=== PATIENT | male | born 1955 | race Caucasian/White ===

== ENCOUNTER 2016-08-08 17:54 | Emergency (ER) | payer OTHER ==
[~2016-08-08 17:54] MED LIST: ASPIRIN81 M4 PO; COLCHICINE0.6 M2 PO; FUROSEMIDE20 M1 PO; INDOMETHACIN50 M1 PO; KEFLEX500 M1 PO; METOPROLOL TAR100 M1 PO; NORCO 5-325 TA1 EACH PO; XARELTO20 M2 PO; ZOLPIDEM TARTRA10 M1 PO
[2016-08-08 18:16] LABS: ABSOLUTE BASOPHIL COUNT 0 /CUMM (0.0-0.2); ABSOLUTE EOSINOPHIL COUNT 0.1 /CUMM (0.0-0.7); ABSOLUTE GRANULOCYTE CT 6.6 /CUMM (1.4-6.5); ABSOLUTE LYMPH COUNT 1.1 /CUMM (1.2-3.4); ABSOLUTE MONOCYTE COUNT 0.6 /CUMM (0.10-0.60); BASOPHIL % 0.2 % (0.0-2.0); EOSINOPHIL % 1.4 % (0-5); GRANULOCYTE % 78.7 % (42.2-75.2); HEMATOCRIT 47.5 % (42-52); MEAN CORPUSCULAR HGB 29.6 PG (27.0-31.0); MEAN CORPUSCULAR HGB CONC 33.8 G/DL (33.0-37.0); MEAN CORPUSCULAR VOLUME 87.5 FL (80.0-94.0); MEAN PLATELET VOLUME 9.1 FL (7.4-10.4); PLATELET COUNT 136 /CUMM (130-400); RBC DISTRIBUTION WIDTH 14.7 % (11.5-14.5); RED BLOOD CELL CT 5.43 /CUMM (4.70-6.10); WHITE BLOOD CELL COUNT 8.4 /CUMM (4.8-10.8)
[2016-08-08] MEDS ORDERED: CARTIA XT120 M1 PO (19:19)
--- NOTE | 2016-08-08 19:19 | ED DYSPNEA/ASTHMA COMPLAINT ---
History of Present Illness General Chief Complaint: Dyspnea (COPD, CHF, Other) Stated Complaint: SOB Source: patient, old records Exam Limitations: no limitations Vital Signs & Intake/Output Vital Signs & Intake/Output Vital Signs Date Time Temp Pulse Resp B/P B/P Pulse O2 O2 Flow FiO2 Mean Ox Delivery Rate 08/08 2126 96 Room Air 08/08 2042 98.2 83 18 143/91 97 Room Air 08/08 1943 95 08/08 180 99.2 97 20 152/93 98 Room Air Allergies Coded Allergies: NO KNOWN ALLERGIES (05/07/13) Reconcile Medications Albuterol Sulfate (Proair Hfa) 90 MCG HFA.AER.AD 2 PUF INH Q4-6 PRN PRN WHEEZING Albuterol Sulfate (Proair Hfa) 90 MCG HFA.AER.AD 2 PUF INH Q4-6 PRN PRN WHEEZING Allopurinol 300 MG TABLET 1 TAB PO BID GOUT (Reported) Aspirin (Aspirin*) 81 MG TAB.CHEW 1 TAB PO DAILY HEART HEALTH (Reported) Azithromycin (Zithromax) 250 MG TABLET 1 DP PO AD BRONCHITIS 2 the first day followed by 1 for days 2-5 Azithromycin (Zithromax) 250 MG TABLET 1 DP PO AD BRONCHITIS 2 the first day followed by 1 for days 2-5 Clopidogrel Bisulfate (Clopidogrel) 75 MG TABLET 1 TAB PO DAILY BLOOD THINNER (Reported) Codeine Phosphate/Guaifenesi (Guaifen-Codeine 100-10 MG/5 Ml) 10 MG-100 MG/5 ML LIQUID 10 ML PO Q6HR PRN COUGH Codeine Phosphate/Guaifenesi (Guaifen-Codeine 100-10 MG/5 Ml) 10 MG-100 MG/5 ML LIQUID 10 ML PO Q6HR PRN COUGH Diltiazem HCl (Cartia Xt) 120 MG CAP.ER.24H 1 CAP PO DAILY HEART/BP (Reported ) Furosemide 20 MG TABLET 1 TAB PO DAILY WATER PILL (Reported) Lisinopril 40 MG TABLET 1 TAB PO BID BP (Reported) Metoprolol Tartrate 100 MG TABLET 1.5 TAB PO BID HEART/BP (Reported) Rivaroxaban (Xarelto) 20 MG TABLET 1 TAB PO DAILY BLOOD THINNER (Reported) with food Zolpidem Tartrate 10 MG TABLET 1 TAB PO QPM SLEEP (Reported) Triage Note: TRIAGE: C/O DIFF BREATHING TODAY, DENIES MITIGATING OR ALLEVIATING FACTORS. EKG COMPLETED IN TRIAGE, AFIB RATE CONTROLLED WITH HX OF SAME. HX CHF AND FOLLOWED BY DR VASQUEZ AND DR GAY CARDIOLOGY. DENIES CHEST PAIN AT PRESENT. 02 SAT 98% ON RA. MINIMAL PEDAL EDEMA OBSERVED. AAOX3. BLOODWORK SENT FROM TRIAGE (BLUE, SST, LAV). Triage Nurses Notes Reviewed? yes Onset: Gradual Duration: day(s): (3), constant Timing: recent history Severity: mild Activities at Onset: none Prior Episodes/Possible Cause: occasional episodes Associated Symptoms: cough, chest pain HPI: 61 yo male h/o afib on xarelto presents to the ER c/o productive coughof yellow sputum, intermitten dyspnea and chest pain secondary to coughing for hte past 3 days. he reports historyof similar sx in hte past and was d/w pna. he states last week his legs were swollen however that has since resolved, no orthopnea, no fever, chills, palp, diziness, lighthedness, abd pain, n/v/d. he does not smoke. no pain with inspiration (ILANA LATIF) Past History Travel History Traveled to [place] past 21 day No Medical History Any Pertinent Medical History? see below for history Neurological: NONE EENT: NONE Cardiovascular: AFIB, CHF Respiratory: NONE Gastrointestinal: NONE Hepatic: NONE Renal: NONE Musculoskeletal: gout Psychiatric: NONE Endocrine: NONE Surgical History Surgical History: non-contributory Psychosocial History Who do you live with Friend Services at Home None What is your primary language Romansh Tobacco Use: Current Not Daily Family History Family History, If Any: MOTHER FH: lung cancer FATHER FH: lung cancer Relation not specified for: Bone cancer Hx Contributory? No (ILANA LATIF) Review of Systems Review of Systems Constitutional: Reports: see HPI. All Other Systems: Reviewed and Negative Comments Review of systems: See HPI, All other systems negative. Constitutional, no chills no fever, no malaise HEENT: no sore throat no congestion, no ear pain Cardiovascular: No chest pain , no palpitation , no orthopnea Skin: no rashes, no change in skin Respiratory: No dyspnea cough no sputum no hemoptysis GI: No nausea no vomiting, no diarrhea, : No dysuria Muscle skeletal: No joint pain, no joint swelling, no back pain, no neck pain, Neurologic: no headache Psych: No stress Heme/endocrine: No bruising no bleeding Immunology: No lymphadenopathy (ILANA LATIF) Physical Exam Physical Exam General Appearance: well developed/nourished, no apparent distress, alert, awake Respiratory: normal breath sounds Comments: Well-developed well-nourished person in no acute distress HEENT: Normal EENT exam; PERRL, EOMI, no nystagmus. HEAD is atraumatic. moist mucous membranes. Neck: Supple, no lymphadenopathy, normal range of motion without pain or tenderness Back: Nontender, no CVA tenderness. Full range of motion Cardiovascular: Regular rate and rhythms no murmurs rubs or gallops, normal JVP Respiratory: Chest nontender.There were no bony deformities, no asymmetry. No respiratory distress. Patient speaking in full complete sentences. Breath sounds clear to auscultation bilaterally: NO W/R/R Abdomen: Soft, nontender nondistended, no appreciable organomegaly. Normal bowel sounds. No rebound/guarding, No appreciable enlargement of the abdominal aorta, No ascites. Extremity: No edema, full range of motion of extremities, normal and equal pulses bilaterally, 5 out of 5 strength noted to bilateral upper and lower extremities Neuro: Alert oriented x3, motor sensory normal, cranial nerves II through XII grossly intact. There were no obvious focal neurologic abnormalities. Skin: No appreciable rash on exposed skin, skin is warm and dry. Psych: Mood and affect is normal, memory and judgment is normal. Core Measures ACS in differential dx? Yes Severe Sepsis Present: No Septic Shock Present: No (ILANA LATIF) Progress Differential Diagnosis: asthma, AMI, bronchitis, CHF, COPD, musculoskeletal pain , pericarditis, pulmonary embolism, pneumonia, pneumothorax, unstable angina Plan of Care: Orders Procedure Date/time Status TROPONIN LEVEL 08/08 1801 Complete COMPREHENSIVE METABOLIC PANEL 08/08 1801 Complete CBC WITHOUT DIFFERENTIAL 08/08 1801 Complete EKG 08/08 175 Active Laboratory Tests 08/08/161804: Anion Gap 9, Estimated GFR > 60, BUN/Creatinine Ratio 17.3, Glucose 99, Calcium 9.6, Total Bilirubin 0.9, AST 42, ALT 57, Alkaline Phosphatase 127 H, Troponin I < 0.01, Total Protein 7.2, Albumin 4.4, Globulin 2.8, Albumin/Globulin Ratio 1.6, CBC w Diff NO MAN DIFF REQ, RBC 5.43, MCV 87.5, MCH 29.6, RDW 14.7 H, MPV 9.1, Gran % 78.7 H, Lymphocytes % 12.8 L, Monocytes % 6.9, Eosinophils % 1.4, Basophils % 0.2, Absolute Granulocytes 6.6 H, Absolute Lymphocytes 1.1 L, Absolute Monocytes 0.6, Absolute Eosinophils 0.1, Absolute Basophils 0, PUBS MCHC 33.8 08/08/16 1803: Nqa-W-Vfsvuijzold Pept Cancelled Labs ordered old records reviewed patient denies any symptoms at this time he reports similar history when diagnosed with pneumonia a few years ago x-ray ordered reading treatment ordered Patient reports improvement in symptoms after breathing treatment I discussed with the patient at length all of their results. I had an extensive conversation regarding need for close follow up with their primary care physician this week as well as return precautions. I answered all of their questions, they feel comfortable with the plan and follow-up care. I discussed with the patient/family the medications that they will receive. I gave them signs and symptoms that could indicate an adverse reaction. I have advised them to limit their activities until they can see how they respond to the medication. (STEFANI ALEXANDRA,ILANA) Diagnostic Imaging: Viewed by Me: Radiology Read. Discussed w/RAD: Radiology Read. Radiology Impression: PATIENT: CINDY GONSALES PRESENT AGE: 61 PATIENT ACCOUNT NO: [id number] : 55 LOCATION: [facility] ORDERING PHYSICIAN: ILANA ALEXANDRA SERVICE DATE: 08/08/16 EXAM TYPE: RAD - XRY-CHEST XRAY, PA AND LATERAL EXAMINATION: XR CHEST CLINICAL INFORMATION: Dyspnea. COMPARISON: Chest CT from 05/06/2013 TECHNIQUE: 2 views of the chest were obtained. FINDINGS: Mild cardiomegaly is stable. Abandoned epicardial leads are redemonstrated. The thoracic aorta appears unremarkable. The lungs appear clear and somewhat hyperinflated. No consolidation, pulmonary edema, pleural effusion, or pneumothorax. The bones appear somewhat demineralized with multilevel degenerative changes. Healed right lower rib fractures are suspected. No acute osseous abnormalities are visualized. IMPRESSION: Stable cardiomegaly. No radiographic evidence of active cardiopulmonary disease. DICTATED BY: SABRINA AGUILAR MD DATE/TIME DICTATED:08/08/162010 RESPIRATORY CLINICIAN:BRAIN DATE/ TIME TRANSCRIBED:08/08/162010 CONFIDENTIAL, DO NOT COPY WITHOUT APPROPRIATE AUTHORIZATION. <Electronically signed in Other Vendor System> SIGNED BY: SABRINA AGUILAR MD 08/08/162016 Initial ED EKG: normal intervals, normal p-waves, normal QRS complex, normal sinus rhythm, AFIB (100) Prior EKG: unchanged (05/2013) (ILANA LATIF) Departure Departure Time of Disposition: 2020 Disposition: HOME OR SELF CARE Condition: Stable Clinical Impression Primary Impression: Bronchitis Referrals: JACOB VASQUEZ MD (PCP/Family) Additional Instructions: ZPAK DIRECTED, ROBITUSSIN WITH CODEINE FOR COUGH THIS MAY MAKE YOU DROWSY. NO DRIVING OR DRINKING ALOCHOL WHILE TAKING. PROAIR INHALER DIRECTED. THESE WERE SENT TO [facility]. FOLLOW UP WITH YOUR PMD SCHEDULED. RETURN TO THE ER WITH ANY CONCERNS AT ANYTIME SOONER Departure Forms: Customer Survey General Discharge Information Prescriptions: Current Visit Scripts Codeine Phosphate/Guaifenesi (Guaifen-Codeine 100-10 MG/5 Ml) 10 ML PO Q6HR PRN COUGH #150 ML Azithromycin (Zithromax) 1 DP PO AD #6 TAB 2 the first day followed by 1 for days 2-5 Albuterol Sulfate (Proair Hfa) 2 PUF INH Q4-6 PRN PRN WHEEZING #1 INHAL Azithromycin (Zithromax) 1 DP PO AD #6 TAB 2 the first day followed by 1 for days 2-5 Codeine Phosphate/Guaifenesi (Guaifen-Codeine 100-10 MG/5 Ml) 10 ML PO Q6HR PRN COUGH #150 ML Albuterol Sulfate (Proair Hfa) 2 PUF INH Q4-6 PRN PRN WHEEZING #1 INHAL (ILANA LATIF) PA/[employer] Co-Sign Statement Statement: ED Attending supervision documentation- I saw and evaluated the patient. I have also reviewed all the pertinent lab results and diagnostic results. I agree with the findings and the plan of care as documented in the PA's/[employer]'s documentation. x I have reviewed the ED Record and agree with the PA's/[employer]'s documentation. [] Additions or exceptions (if any) to the PAs/[employer]AT[employer]'s note and plan are summarized below: [] (HIPONA MD,TYRON) Critical Care Note Critical Care Note Critical Care Time: non-applicable (STEFANI ALEXANDRA,ILANA)
[2016-08-08] MEDS ORDERED: LISINOPRIL40 M1 PO (19:20)
[2016-08-08] MEDS ORDERED: CLOPIDOGREL75 M1 PO (19:21)
[2016-08-08] MEDS ORDERED: ALLOPURINOL300 M1 PO (19:22)
--- NOTE | 2016-08-08 20:17 | RADIOLOGY REPORT ---
EXAMINATION: XR CHEST CLINICAL INFORMATION: Dyspnea. COMPARISON: Chest CT from 05/06/2013 TECHNIQUE: 2 views of the chest were obtained. FINDINGS: Mild cardiomegaly is stable. Abandoned epicardial leads are redemonstrated. The thoracic aorta appears unremarkable. The lungs appear clear and somewhat hyperinflated. No consolidation, pulmonary edema, pleural effusion, or pneumothorax. The bones appear somewhat demineralized with multilevel degenerative changes. Healed right lower rib fractures are suspected. No acute osseous abnormalities are visualized. IMPRESSION: Stable cardiomegaly. No radiographic evidence of active cardiopulmonary disease.
[2016-08-08] MEDS ORDERED: GUAIFEN-CODEIN118 M1 PO ×2 (20:25→21:07)
[2016-08-08] MEDS ORDERED: PROAIR HFA8.5 GM INH ×2 (20:25→21:07)
[2016-08-08] MEDS ORDERED: ZITHROMAX250 M2 PO ×2 (20:25→21:07)
[2016-08-08 20:43] VITALS: BP 143/91
== END 2016-08-08 21:29 ==
LOC: ERH 17:54
PROVIDERS: Emergency Medicine
DX: J40 Bronchitis, not specified as acute or chronic (principal); Z72.0 Tobacco use; R07.9 Chest pain, unspecified
CPT/HCPCS: 1263; 93005; 93010

== ENCOUNTER 2017-05-22 12:18 | Observation (INO) | payer OTHER ==
[~2017-05-22] VITALS: Ht 182.9 cm; Wt 108.0 kg
[~2017-05-22 12:18] MED LIST changes: +ALLOPURINOL300 M1 PO; +CARTIA XT120 M1 PO; +CLOPIDOGREL75 M1 PO; +GUAIFEN-CODEIN118 M1 PO; +LISINOPRIL40 M1 PO; +MEDROL4 M2 PO; +PROAIR HFA8.5 GM INH; +TYLENOL WITH C1 EACH PO; +ZITHROMAX250 M2 PO
[2017-05-22 13:00] LABS: ABSOLUTE BASOPHIL COUNT 0 /CUMM (0.0-0.2); ABSOLUTE EOSINOPHIL COUNT 0.1 /CUMM (0.0-0.7); ABSOLUTE GRANULOCYTE CT 3.4 /CUMM (1.4-6.5); ABSOLUTE LYMPH COUNT 1.8 /CUMM (1.2-3.4); ABSOLUTE MONOCYTE COUNT 0.4 /CUMM (0.10-0.60); BASOPHIL % 0.3 % (0.0-2.0); EOSINOPHIL % 1.2 % (0-5); GRANULOCYTE % 59.8 % (42.2-75.2); HEMATOCRIT 43.8 % (42-52); MEAN CORPUSCULAR HGB 29.4 PG (27.0-31.0); MEAN CORPUSCULAR HGB CONC 34.2 G/DL (33.0-37.0); MEAN CORPUSCULAR VOLUME 85.9 FL (80.0-94.0); MEAN PLATELET VOLUME 9.5 FL (7.4-10.4); PLATELET COUNT 190 /CUMM (130-400); RBC DISTRIBUTION WIDTH 14.9 % (11.5-14.5); WHITE BLOOD CELL COUNT 5.8 /CUMM (4.8-10.8)
[2017-05-22] MEDS ORDERED: FENOFIBRATE PO (13:13)
[2017-05-22] MEDS ORDERED: DIGOXIN125 MCG PO (13:14)
--- NOTE | 2017-05-22 13:14 | ED CARDIAC/CP/PALPITATIONS ---
History of Present Illness General Chief Complaint: Chest Pain Stated Complaint: SENT IN BY MD GAY FOR LAB WORK AND CP Source: patient Exam Limitations: no limitations Vital Signs & Intake/Output Vital Signs & Intake/Output Vital Signs Date Time Temp Pulse Resp B/P B/P Pulse O2 O2 Flow FiO2 Mean Ox Delivery Rate 05/22 1841 97.5 93 22 128/74 97 05/22 1752 96.3 83 18 143/72 98 Room Air 05/22 1530 91 146/79 05/22 1514 96.5 72 16 136/75 100 Room Air 05/22 1430 96.0 70 20 120/60 98 Room Air 05/22 1229 97.3 94 18 136/89 99 Room Air Allergies Coded Allergies: NO KNOWN ALLERGIES (05/07/13) Reconcile Medications Albuterol Sulfate (Proair Hfa) 90 MCG HFA.AER.AD 2 PUF INH Q4-6 PRN PRN WHEEZING Allopurinol 300 MG TABLET 1 TAB PO BID GOUT (Reported) Aspirin (Aspirin*) 81 MG TAB.CHEW 1 TAB PO DAILY HEART HEALTH (Reported) Clopidogrel Bisulfate (Clopidogrel) 75 MG TABLET 1 TAB PO DAILY BLOOD THINNER (Reported) Digoxin 125 MCG TABLET 1 TAB PO DAILY HEART (Reported) Diltiazem HCl (Cartia Xt) 120 MG CAP.ER.24H 1 CAP PO DAILY HEART/BP (Reported ) Fenofibrate 150 MG CAPSULE 1 CAP PO DAILY CHOLESTEROL (Reported) Furosemide 20 MG TABLET 1 TAB PO DAILY WATER PILL (Reported) Lisinopril 40 MG TABLET 1 TAB PO BID BP (Reported) Metoprolol Tartrate 100 MG TABLET 1.5 TAB PO BID HEART/BP (Reported) Rivaroxaban (Xarelto) 20 MG TABLET 1 TAB PO DAILY BLOOD THINNER (Reported) with food Zolpidem Tartrate 10 MG TABLET 1 TAB PO QPM SLEEP (Reported) Triage Note: PT SENT TO ER BY DR GAY FOR BLOOD WORK, PT STATES THAT HE HAS HISTORY OF AFIB AND HE IS ON XARELTO/ASA/PLAVIX, PT STATES THAT HE HAS NOT FELT WELL LATELY, COMPLAINS OF SOB, O2 SAT 99 % ON RA, DENIES CP AT THIS TIME. STATES THAT HE WENT TO APPOINTMENT AND TOLD DR GAY HIS SYMPTOMS HE WAS SENT DOWN STAIRS Triage Nurses Notes Reviewed? yes Onset: Gradual Duration: week(s): Timing: recent history Quality/Severity: sharp Location: substernal Radiation: no radiation Activities at Onset: none Prior Chest Pain/Card Workup: cardiac cath HPI: 61yo male with hx of CAD s/p cardiac stents, a fib on xarelto, plavix, ASA, CHF presents to ED sent in by Dr. Gay for evaluation of chest pain. Patient states that for the past 4 weeks he has had persistent chest pain described as constant. Over the past several days the chest pain has been worsening, more severe today, currently 6/10. 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 Patient has associated dyspnea. He denies cough, fevers, chills, hemoptysis, abdominal pain, nausea, vomiting, presyncope, syncope. (Josie Gaytan) Past History Travel History Traveled to [place] past 21 day No Medical History Any Pertinent Medical History? see below for history Neurological: NONE EENT: NONE Cardiovascular: AFIB, CHF Respiratory: NONE Gastrointestinal: NONE Hepatic: NONE Renal: NONE Musculoskeletal: gout Psychiatric: NONE Endocrine: NONE Blood Disorders: NONE Cancer(s): NONE CONTROLLER INSTRUCTOR/Reproductive: NONE Surgical History Surgical History: non-contributory Psychosocial History Who do you live with Friend Services at Home None What is your primary language Brazilian Tobacco Use: Never used ETOH Use: denies use Illicit Drug Use: denies illicit drug use Family History Family History, If Any: MOTHER FH: lung cancer FATHER FH: lung cancer Relation not specified for: Bone cancer Hx Contributory? No (Josie Gaytan) Review of Systems Review of Systems Constitutional: Reports: no symptoms. EENTM: Reports: no symptoms. Respiratory: Reports: see HPI. Cardiovascular: Reports: see HPI. GI: Reports: no symptoms. Genitourinary: Reports: no symptoms. Musculoskeletal: Reports: no symptoms. Skin: Reports: no symptoms. Neurological/Psychological: Reports: no symptoms. Hematologic/Endocrine: Reports: no symptoms. Immunologic/Allergic: Reports: no symptoms. All Other Systems: Reviewed and Negative (Josie Gaytan) Physical Exam Physical Exam General Appearance: well developed/nourished, no apparent distress, alert, awake Head: atraumatic, normal appearance Eyes: Bilateral: normal appearance. Ears, Nose, Throat: hearing grossly normal Neck: normal inspection, supple, full range of motion Respiratory: normal breath sounds, no respiratory distress, lungs clear Cardiovascular: normal peripheral pulses, irregularly irregular Peripheral Pulses: 2+ radial (R), 2+ radial (L) Gastrointestinal: normal bowel sounds, soft, non-tender, no organomegaly Back: normal inspection, normal range of motion Extremities: normal inspection, normal range of motion Neurologic/Psych: awake, alert, oriented x 3 Skin: intact, normal color, warm/dry Core Measures ACS in differential dx? Yes CVA/TIA Diagnosis No Sepsis Present: No Sepsis Focused Exam Completed? No (Vanessa ALEXANDRA,Josie Arrieta) Progress Differential Diagnosis: AMI, atrial fibrillation, CHF/pulm edema, costochondritis, musculoskeletal pain, myocarditis, pericarditis, pneumonia, pneumothorax, pulmonary embolism, rib fracture, unstable angina, digoxin toxicity Plan of Care: Orders Procedure Date/time Status Heart Healthy Diet 05/23 B Active TROPONIN LEVEL 05/22 2200 Active EKG 05/22 2200 Active Pathway - chart 05/22 1700 Active House Staff 05/22 1700 Active Patient Data 05/22 1700 Active Code Status 05/[address] in observation 05/22 1655 Active ED Holding Orders 05/22 1655 Active Vital Signs 05/22 1655 Active Code Status 05/22 1655 Complete Patient Data 05/22 1639 Active TROPONIN LEVEL 05/22 1632 Complete EKG 05/22 1632 Active Add-on Test (ER Only) 05/22 1426 Active Add-on Test (ER Only) 05/22 1314 Active Intake & Output 05/22 1310 Active MAGNESIUM 05/22 1238 Complete DIGOXIN 05/22 1238 Complete D-DIMER 05/22 1238 Complete B-TYPE NATRIURETIC PEP (BNP) 05/22 1238 Complete TROPONIN LEVEL 05/22 1232 Complete COMPREHENSIVE METABOLIC PANEL 05/22 1232 Complete CBC WITHOUT DIFFERENTIAL 05/22 1232 Complete EKG 05/22 1220 Active VTE Mechanical Prophylaxis 05/22 UNK Active MISTAKE 05/22 UNK Active Telemetry/Pole Setter 05/22 UNK Active ECHOCARDIOGRAM 05/22 UNK Active Current Medications Sig/Rocio Start time Last Medication Dose Stop Time Status Admin Atorvastatin Calcium 20 MG 1700 05/23 1700 AC (Lipitor) Digoxin 0.125 MG 1700 05/23 1700 AC (Lanoxin) Aspirin 81 MG DAILY 05/23 1000 AC (Aspirin) Clopidogrel Bisulfate 75 MG DAILY 05/23 1000 AC (Plavix) Diltiazem HCl 120 MG DAILY 05/23 1000 AC (Cardizem CD) Fenofibrate 145 MG DAILY 05/23 1000 AC (Tricor) Furosemide 20 MG DAILY 05/23 1000 AC (Lasix) Lisinopril 40 MG BID 05/23 1000 AC (Prinivil) Rivaroxaban 20 MG DAILY 05/23 1000 AC (Xarelto) Allopurinol 300 MG BID 05/22 2199 AC (Zyloprim) Metoprolol Tartrate 150 MG BID 05/22 2199 AC (Lopressor) Zolpidem Tartrate 10 MG QPM 05/22 2199 AC (Ambien) Nitroglycerin 0.5 GM Q6 05/22 1929 AC (Nitro-Bid) Nitroglycerin 0.4 MG DAILY 05/23 1831 AC 05/22 (Transderm Nitro 1932 10MG (0.4 MG/Hr) Patch) Albuterol Sulfate 2 PUF Q4-6 PRN PRN 05/22 1829 AC (Ventolin) Pantoprazole Sodium 40 MG DAILY 05/23 1827 AC 05/22 (Protonix) 1933 Laboratory Tests 05/22/17 1748: Troponin I < 0.01 05/22/17 1238: Anion Gap 13, Estimated GFR 44 L, BUN/Creatinine Ratio 15.0, Glucose 131 H, Calcium 9.9, Magnesium 1.9, Total Bilirubin 0.7, AST 41, ALT 50, Alkaline Phosphatase 80, Troponin I < 0.01, [id number] Pept 851 H, Total Protein 6.7, Albumin 4.2, Globulin 2.5, Albumin/Globulin Ratio 1.7, D-Dimer High Sensitivty < 200, CBC w Diff NO MAN DIFF REQ, RBC 5.10, MCV 85.9, MCH 29.4, MCHC 34.2, RDW 14.9 H, MPV 9.5, Gran % 59.8, Lymphocytes % 31.4, Monocytes % 7.3, Eosinophils % 1.2, Basophils % 0.3, Absolute Granulocytes 3.4, Absolute Lymphocytes 1.8, Absolute Monocytes 0.4, Absolute Eosinophils 0.1, Absolute Basophils 0, Digoxin 0.7 L Patient's troponin is negative, BNP only slightly elevated, chest x-ray within normal limits. Patient's digoxin level was not elevated. Patient still is active chest pain here in the emergency department despite sublingual nitroglycerin. EKG shows T-wave inversions, nonspecific changes. Spoke with Dr. Gay regarding this patient, he recommends telemetry admission and initiation of PPI with GI consult patient is here. Case management recommend observation. Dr. Sloan with hospitalist regarding this patient's telemetry observation. Diagnostic Imaging: Viewed by Me: Radiology Read. Discussed w/RAD: Radiology Read. Radiology Impression: PATIENT: CINDY GONSALES PRESENT AGE: 61 PATIENT ACCOUNT NO: [id number] : 55 LOCATION: [facility] ORDERING PHYSICIAN: Josie ALEXANDRA SERVICE DATE: 05/22/17 EXAM TYPE: RAD - XRY-CHEST XRAY, TWO VIEWS EXAMINATION: XR CHEST CLINICAL INFORMATION : Dyspnea and chest pain. COMPARISON: Chest radiograph 08/08/2016. TECHNIQUE: 2 views of the chest were obtained. FINDINGS: There is no consolidation, edema, or effusion. There is no pneumothorax. There is mild eventration the right hemidiaphragm. The cardiac silhouette is mildly enlarged. There are retained epicardial pacer wires. There are probable old right-sided rib fractures. There are multilevel degenerative changes in the thoracic spine with mild accentuation of the normal thoracic kyphosis. IMPRESSION: No active disease in the chest. Stable mild cardiomegaly. DICTATED BY: Bean Villalta MD DATE/TIME DICTATED:1354 RACEBOOK WRITER:BRAIN DATE/TIME TRANSCRIBED:05/22/171354 CONFIDENTIAL, DO NOT COPY WITHOUT APPROPRIATE AUTHORIZATION. <Electronically signed in Other Vendor System> SIGNED BY: Bean Villalta MD 05/22/17 1401 Initial ED EKG: atrial fibrillation rate 103, nonspecific ST changes including t wave inversions Prior EKG: changed (08/08/16) (Vanessa ALEXANDRA,Josie Arrieta) Departure Departure Disposition: STILL A PATIENT Condition: Stable Clinical Impression Primary Impression: Chest pain Secondary Impressions: Acute electrocardiogram changes Referrals: Trevon Flores DO (PCP/Family) Departure Forms: Customer Survey General Discharge Information Observation Note Spoke With: Johann BARR,Kathy Physician Advisor Notified: PASCUAL SLOAN DO Place Patient In: Non-ED OBS Care Area Rationale for Observation: My rational for observation is as follows [active chest pain requiring repeat EKGs, troponins, telemetry monitoring, cardiology consult, persistent chest pain requiring GI consult, premature discharge is medically unsafe]. (Vanessa ALEXANDRA,Josie Arrieta) PA/SURVEY RESEARCHER Co-Sign Statement Statement: ED Attending supervision documentation- [x] I saw and evaluated the patient. I have also reviewed all the pertinent lab results and diagnostic results. I agree with the findings and the plan of care as documented in the PA's/SURVEY RESEARCHER's documentation. [] I have reviewed the ED Record and agree with the PA's/SURVEY RESEARCHER's documentation. [] Additions or exceptions (if any) to the PAs/SURVEY RESEARCHER's note and plan are summarized below: [] I saw and evaluated the patient. He is in no acute distress. EKG shows atrial fibrillation nonspecific ST-T wave abnormality. He was placed in observation on telemetry unit for further care, in concert with his construction sales manager Dr. Gay. (Pascual Sloan DO) Critical Care Note Critical Care Note Critical Care Time: non-applicable (Josie Gaytan)
--- NOTE | 2017-05-22 14:01 | RADIOLOGY REPORT ---
EXAMINATION: XR CHEST CLINICAL INFORMATION: Dyspnea and chest pain. COMPARISON: Chest radiograph 08/08/2016. TECHNIQUE: 2 views of the chest were obtained. FINDINGS: There is no consolidation, edema, or effusion. There is no pneumothorax. There is mild eventration the right hemidiaphragm. The cardiac silhouette is mildly enlarged. There are retained epicardial pacer wires. There are probable old right-sided rib fractures. There are multilevel degenerative changes in the thoracic spine with mild accentuation of the normal thoracic kyphosis. IMPRESSION: No active disease in the chest. Stable mild cardiomegaly.
--- NOTE | 2017-05-22 16:48 | History & Physical ---
Guerrero BARR,[facility] 05/22/17 6178: General Information and HPI MD Statement: I have seen and personally examined CINDY GONSALES and documented this H&P. The patient is a 61 year old M who presented with a patient stated chief complaint of [chest pain, shortness of breath]. Source of Information: patient History of Present Illness: 61-year-old male with a past medical history of A. fib, CHF, gout, CAD status post stent, 5x cardioversions + mini maze failure, macular degeneration presenting for chest pain and shortness of breath. Patient sent in by Dr. White for ST-T wave changes on todays ECG. The patient states that he has had shortness of breath for the past 2 months with increasing severity. States that his chest pain has been ongoing since 2006 after his mini maze procedure for has been progressively worse. It is primarily his left chest however it will sometimes radiate to the back. States that it sometime sradiates to his jaw/arm. Describes as a pressure-like pain, 6 out of 10 severity. States that he feels like his throat was called at night. States that he does have snoring at night but has never been diagnosed with MELINDA. The patient also complains of headaches which are chronic, palpitations, lightheadedness, intermittent nosebleeds. States that he always feels cold. 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 He denies any nausea, vomiting, fevers, chills, cough, changes in elimination, bloody stool. He states that he has never smoked and quit alcohol 10 years ago. He does state that he has a history of substance abuse including cocaine and marijuana which he has stopped after the maze procedure. Allergies/Medications Allergies: Coded Allergies: NO KNOWN ALLERGIES (05/07/13) Observation Initial Note - I have personally examined CINDY GONSALES on 05/22/17 at 2100. 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 Exam & Diagnostic Data Last 24 Hrs of Vital Signs/I&O Vital Signs Date Time Temp Pulse Resp B/P B/P Pulse O2 O2 Flow FiO2 Mean Ox Delivery Rate 05/22 2041 93 128/74 05/22 1841 97.5 93 22 128/74 97 05/22 1752 96.3 83 18 143/72 98 Room Air 05/22 1530 91 146/79 05/22 1514 96.5 72 16 136/75 100 Room Air 05/22 1430 96.0 70 20 120/60 98 Room Air 05/22 1229 97.3 94 18 136/89 99 Room Air Intake & Output 05/22 1600 05/22 0800 05/22 0000 Intake Total Output Total Balance Patient 238 lb Weight Physical Exam General Appearance Alert, Oriented X3, Cooperative HEENT PERRLA, Mucous Membr. moist/pink Cardiovascular irregularly irregular Lungs Clear to Auscultation, Normal Air Movement Abdomen Normal Bowel Sounds, Soft, No Tenderness Extremities right lower chest pain which the patient states is different from his complaint. Diffuse sternal and left chest pain upon palpation which she states is the same pain he's been complaining of. Vascular 2+ radial and pedal pulses Last 24 Hrs of Labs/Zev: Laboratory Tests 05/22/17 1748: Troponin I < 0.01 05/22/17 1238: Anion Gap 13, Estimated GFR 44 L, BUN/Creatinine Ratio 15.0, Glucose 131 H, Calcium 9.9, Magnesium 1.9, Total Bilirubin 0.7, AST 41, ALT 50, Alkaline Phosphatase 80, Troponin I < 0.01, Vju-N-Tuqitsblprj Pept 851 H, Total Protein 6.7, Albumin 4.2, Globulin 2.5, Albumin/Globulin Ratio 1.7, D-Dimer High Sensitivty < 200, CBC w Diff NO MAN DIFF REQ, RBC 5.10, MCV 85.9, MCH 29.4, MCHC 34.2, RDW 14.9 H, MPV 9.5, Gran % 59.8, Lymphocytes % 31.4, Monocytes % 7.3, Eosinophils % 1.2, Basophils % 0.3, Absolute Granulocytes 3.4, Absolute Lymphocytes 1.8, Absolute Monocytes 0.4, Absolute Eosinophils 0.1, Absolute Basophils 0, Digoxin 0.7 L Assessment/Plan Assessment: A: 61-year-old male with a past medical history of A. fib, CHF, gout, CAD status post stent, 5x cardioversions + mini maze failure, macular degeneration presenting for chest pain and shortness of breath. P: #Chest pain most likely muscle skeletal, r/o acs Patient sent in by Dr. White for ST-T wave changes on todays ECG Chest pain reproducible upon palpation CXR: No active disease in the chest. Stable mild cardiomegaly. trops <.01 x2 ProBNP 851 -f/u ekg trops to r/o acs -Gastroenterology will evaluate the patient for tomorrow -Start Nitropaste, Protonix #SOB -cont trc nebs #EDEN Creatinine 1.6 (baseline 1.3) -Continue to monitor #Chronic medical conditions -Continue digoxin, atorvastatin, apixaban, lisinopril, furosemide, fenofibrate, diltiazem, clopidogrel, aspirin, zolpidem, metoprolol, allopurinol, albuterol #FULL CODE #DVT prophylaxis -apixaban As Ranked By This Provider Problem List: 1. Shortness of breath 2. Chest pain Core Measures/Misc (11/17) Acute Coronary Syndrome ACS Diagnosis: No Congestive Heart Failure Congestive Heart Failure Diagnosis No Cerebrovascular Accident CVA/TIA Diagnosis: No VTE (View Protocol) VTE Risk Factors Acute Medical Illness No Mechanical VTE Prophylaxis d/t Other No VTE Pharm Prophylaxis d/t NA PharmProphylax ordered Sepsis (View protocol) Sepsis Present: No [place] So MD 05/22/17 3228: General Information and HPI Allergies/Medications Home Med list Albuterol Sulfate (Proair Hfa) 90 MCG HFA.AER.AD 2 PUF INH Q4-6 PRN PRN WHEEZING Allopurinol 300 MG TABLET 1 TAB PO BID GOUT (Reported) Aspirin (Aspirin*) 81 MG TAB.CHEW 1 TAB PO DAILY HEART HEALTH (Reported) Atorvastatin Calcium 20 MG TABLET 1 TAB PO DAILY CHOLESTEROL . Digoxin 125 MCG TABLET 1 TAB PO DAILY HEART (Reported) Diltiazem HCl (Cartia Xt) 120 MG CAP.ER.24H 1 CAP PO DAILY HEART/BP (Reported ) Fenofibrate 150 MG CAPSULE 1 CAP PO DAILY CHOLESTEROL (Reported) Furosemide 20 MG TABLET 1 TAB PO DAILY WATER PILL (Reported) Lisinopril 40 MG TABLET 1 TAB PO BID BP (Reported) Metoprolol Tartrate 100 MG TABLET 1.5 TAB PO BID HEART/BP (Reported) Pantoprazole Sodium (Protonix) 20 MG TABLET.DR 1 TAB PO DAILY GERD . Rivaroxaban (Xarelto) 20 MG TABLET 1 TAB PO DAILY BLOOD THINNER (Reported) with food Zolpidem Tartrate 10 MG TABLET 1 TAB PO QPM SLEEP (Reported) Observation Initial Note - I have personally examined CINDY GONSALES on 05/22/17 at 1850. The disposition of CINDY GONSALES is uncertain at this time and before a determination can be made, he requires a period of observation for the following reasons [chest pain/GERD] Resident Review Statement Resident Statement: examined this patient, discussed with internal revenue service agent, agreed with internal revenue service agent Other Findings: Patient is a 61-year-old male presented with chief complaints of chest pain. According to the patient he always have chest pain off and on since last many year there is no any new changes but recently he started having shortness of breath since last couple of days. He declines chest pain as a pressure in the chest located on the front of the chest and goes treated to the back, it is 6/10 in severity and nitroglycerin helped a little bit 4/10. He denies any recent trauma, lifting heavy weight, fever, chills, cough, rashes, GERD-like symptoms, sore throat, swelling in the legs, loss of appetite, black stools. Past medical history - CAD, s/p stenting (2013,2017) CHF History of hypertension History of hyperlipidemia Atrial fibrillation S/P hx of cardioversion 5 times, failed mini maze procedure, LVEF 45 -50%, GERD Gout Restless leg syndrome Macular degeneration Echo 2014 -normal hypokinesia, left ventricular ejection fraction 45-50%, left atrial dilatation, right atrial dilatation. Personal history -lives with her family, recently got , denies smoking, quit alcohol and cocaine and marijuana around 10 years ago. He can do all his daily activity without any difficulty. F/H - parents Hx of lung cancer, paternal uncle history of bone cancer ED course - Vital signs-temperature 97.8, pulse 94, respiratory 18, blood pressure 136/89, SPO2 99% on room air. Physical exam -conscious, cooperative, alert 3, morbidly obese, short neck, scoliosis, no JVD, chest exam -tender on palpation on bilateral front part of chest, bilateral equal air entry, heart S1-S2 normal, irregular rhythm, all peripheral pulses are palpable. EKG -atrial fibrillation, heart rate 63, no P waves, inverted T waves in all leads. Blood workup -hemoglobin 15.0, hematocrit 43.8, platelet count 190, sodium 142, potassium 4.4, carbon dioxide 28, anion gap 13, BUN 24, creatinine 1.6, glucose 131, calcium 9.9, magnesium 1.9, total bilirubin 0.7, AST 41, ALT 50, alkaline phosphatase 80, troponin less than 0.01, proBNP 851, albumin 4.2, d-dimer less than 200. According to the patient he was given tablet nitroglycerin with some benefit. His chest pain went down from 6-06/10. Assessment and plan - Patient is a 61-year-old male with multiple medical problems including atrial fibrillation, coronary artery disease, CHF, hypertension, hyperlipidemia presented with the chief complaints of chest pain associated with shortness of breath. He is going regular follow-up with Dr. White according to him he had nuclear stress test in 2016 followed stenting of the coronary artery. Still he continued to have chest pain. On examination patient was having tenderness in chest along and in epigastrium.He does work as a lifting heavy weight. His serial troponins were negative and EKG did not show any acute changes.He is compliant with his medication. He is taking aspirin. We should rule out GERD/ gastritis/peptic ulcer disease. We will start patient on pantoprazole and please consult for GI. Will check stool for occult blood. He does have a stress factor at home, he recently got but he is not very open for discussion. Chest pain possible GERD/gastritis -acute coronary syndrome cannot be ruled out need evaluation - * We will observe the patient to telemetry floor * We will do serial troponins and EKG * We will follow cardiology recommendation * We will start patient on injection pantoprazole 40 mg IV right eye * We will consider upper GI endoscopy/GI consultation if needed * Pain medication according to the pain scale -Tylenol as needed. * Stool for occult blood * We should think for ?CTEP; Echo and pulmonary pressure, and possible VQ scan/ Pulmonary consult. Dizziness on changing position - * Orthostatic BP Chronic medical condition - HTN, HL, Gout * We will continue all her medication as before. CODE STATUS -full code DVT prophylaxis-Xarelto Diet-heart healthy diet Johann BARR,[facility] 05/23/17 1506: Attending MD Review Statement Attending Statement Attending MD Statement: examined this patient, discuss w/resident/PA/FAN MAIL CLERK, agreed w/resident/PA/FAN MAIL CLERK, reviewed EMR data (avail), discussed with nursing, reviewed images, amended to note Attending Assessment/Plan: Also see my separate addendum. Also see my separate addendum.
--- NOTE | 2017-05-22 17:46 | PN- Att Addend ---
Attending Addendum Attending Brief Note 61-year-old male with past medical history significant for chronic atrial fibrillation on Xarelto status post mini-Maze procedure, chronic diastolic and systolic congestive heart failure, hypertension, hyperlipidemia, CKD who was sent in from Dr. White's office secondary to abnormal EKG and patient's complaint of chest pain. Patient feels that he has been feeling lousy and has had chest pain for quite a while. It got worse today therefore he went to Dr. White's office. His EKG found to have some new changes therefore patient was sent to the emergency room. Patient describes the pain as located in the center of his chest. He does mention that it sometimes radiates to his back. He describes it as discomfort. He did not make any association with exertion. He mentioned that he received nitroglycerin in the emergency room which did make some difference. He also feels short of breath at times. He denies any fevers chills or cough. Vital Signs Date Time Temp Pulse Resp B/P B/P Pulse O2 O2 Flow FiO2 Mean Ox Delivery Rate 05/22 1530 91 146/79 05/22 1514 96.5 72 16 136/75 100 Room Air 05/22 1430 96.0 70 20 120/60 98 Room Air 05/22 1229 97.3 94 18 136/89 99 Room Air On exam: aox3 nad. Cv; s1, s2, irregular, some tenderness on chest palpation. resp; clear abd; soft, some epigstric tendernss, bs+ ext; no edema. Laboratory Tests 05/22 1238 Chemistry Sodium (137 - 145 mmol/L) 142 Potassium (3.5 - 5.1 mmol/L) 4.4 Chloride (98 - 107 mmol/L) 101 Carbon Dioxide (22 - 30 mmol/L) 28 Anion Gap (5 - 16) 13 BUN (9 - 20 mg/dL) 24 H Creatinine (0.7 - 1.2 mg/dL) 1.6 H Estimated GFR (>60 ml/min) 44 L BUN/Creatinine Ratio (7 - 25 %) 15.0 Glucose (65 - 99 mg/dL) 131 H Calcium (8.4 - 10.2 mg/dL) 9.9 Magnesium (1.6 - 2.3 mg/dL) 1.9 Total Bilirubin (0.2 - 1.3 mg/dL) 0.7 AST (17 - 59 U/L) 41 ALT (21 - 72 U/L) 50 Alkaline Phosphatase (< 127 U/L) 80 Troponin I (<0.11 ng/ml) < 0.01 Qje-E-Bbymqshhgpn Pept (<125 pg/mL) 851 H Total Protein (6.3 - 8.2 g/dL) 6.7 Albumin (3.5 - 5.0 g/dL) 4.2 Globulin (1.9 - 4.2 gm/dL) 2.5 Albumin/Globulin Ratio (1.1 - 2.2 %) 1.7 Coagulation D-Dimer High Sensitivty (0 - 243 ng/ml) < 200 Hematology CBC w Diff NO MAN DIFF REQ WBC (4.8 - 10.8 /CUMM) 5.8 RBC (4.70 - 6.10 /CUMM) 5.10 Hgb (14.0 - 18.0 G/DL) 15.0 Hct (42 - 52 %) 43.8 MCV (80.0 - 94.0 FL) 85.9 MCH (27.0 - 31.0 PG) 29.4 MCHC (33.0 - 37.0 G/DL) 34.2 RDW (11.5 - 14.5 %) 14.9 H Plt Count (130 - 400 /CUMM) 190 MPV (7.4 - 10.4 FL) 9.5 Gran % (42.2 - 75.2 %) 59.8 Lymphocytes % (20.5 - 51.1 %) 31.4 Monocytes % (1.7 - 9.3 %) 7.3 Eosinophils % (0 - 5 %) 1.2 Basophils % (0.0 - 2.0 %) 0.3 Absolute Granulocytes (1.4 - 6.5 /CUMM) 3.4 Absolute Lymphocytes (1.2 - 3.4 /CUMM) 1.8 Absolute Monocytes (0.10 - 0.60 /CUMM) 0.4 Absolute Eosinophils (0.0 - 0.7 /CUMM) 0.1 Absolute Basophils (0.0 - 0.2 /CUMM) 0 Toxicology Digoxin (0.8 - 2.0 ng/mL) 0.7 L EKG does show T-wave inversions in inferolateral leads which is new and he has atrial fibrillation which is chronic. A/P; 61-year-old male with past medical history significant for chronic atrial fibrillation on Xarelto status post mini-Maze procedure, chronic diastolic and systolic congestive heart failure, hypertension, hyperlipidemia, CKD will be placed on telemetry observation with chest pain and abnormal EKG. First troponin negative. Patient will have more troponins trended. Please consult cardiology. Please get echocardiogram. Patient might need a stress test or cardiac cath depending on film librarian evaluation. He will be continued on his cardiac medications which include aspirin, Plavix, beta kesha, calcium channel kesha. Please confirm if patient is taking digoxin. He should also be continued on his Xarelto. DVT prophylaxis: Xarelto. Patient is DNR/DNI.
--- NOTE | 2017-05-22 18:23 | Cons- Cardiology ---
General Information and HPI Consulting Request Date of Consult: 05/22/17 Requested By: Kathy Wills MD History of Present Illness: The patient is a 61 year old male who presents with atrial fibrillation. Boby is a 60 year old male with history of chronic atrial fibrillation, coronary artery disease s/p PCI with stent to the obtuse marginal in 2014, hypertension and dyslipidemia. He underwent a bilateral Mini-MAZE procedure by Dr. Fede Kilgore several years ago but he remained in a sinus rhythm for only about six months. Over the past year he has been in atrial fibrillation with presumed rapid heart rate with no follow up by his co chairman who I believe was Dr. Kuo. Boby has improved blood pressure although his heart rate remains a bit elevated. He is on digoxin. Over the past month this patient has noted worsening of his shortness of breath which he has both at rest and with exertion. Over the past two weeks he has also noted a chest pressure that he feels bilaterally over his chest and is at times associated with nausea. The discomfort is worse with exertion but is also present at rest. Finally, this patient has episodes of lightheadedness upon arising and occasional palpitations. At his baseline, he will experience an inconsistent mild to moderate non-radiating chest pressure along with shortness of breath. Going up a hill will get him winded. The discomfort was atyical in that it occured both with exertion and at rest with no clear exacerbation by physcial activity. I did assess this patient in the cardiac floating labor gang supervisor and noted a 50-60% proximal LAD lesion that I did not think was flow limiting. Fractional flow reserve was measured and agreed with this assessment therefore I did not perform an angioplasty on this lesion. Luminal irregularities were noted in the LCX and dominant RCA with an overall normal EF of 55%. Prior risk stratification with a stress test showed a large fixed defect inferiorly with a decreased EF of 38%. Slime prior cardiac catheterization showed a 95% proximal RCA lesion that received a 3.5 x 15mm resolute stent. The LAD harbored a long 50% non-flow limiting lesion and diffuse luminal irregularities. The left circumflex also had luminal irregularities. His EF was 40% with anterior wall hypokinesis. Prior cardiac workup included a stent to his OM by Dr. Martinez at [facility] in November of 2014. His last echocardiogram showed a mildly decreased EF of 45-50% with mild left ventricular hypertrophy, moderate biatrial enlargment and mild MR and TR. His latest lipid profile showed triglycerides of 643 with HDL of 21 and an LDL that could not be calculated in the setting of his high triglycerides. Lastly, his creatinine is elevated to 1.3. Allergies/Medications Allergies: Coded Allergies: NO KNOWN ALLERGIES (05/07/13) Home Med List: Albuterol Sulfate (Proair Hfa) 90 MCG HFA.AER.AD 2 PUF INH Q4-6 PRN PRN WHEEZING Allopurinol 300 MG TABLET 1 TAB PO BID GOUT (Reported) Aspirin (Aspirin*) 81 MG TAB.CHEW 1 TAB PO DAILY HEART HEALTH (Reported) Clopidogrel Bisulfate (Clopidogrel) 75 MG TABLET 1 TAB PO DAILY BLOOD THINNER (Reported) Digoxin 125 MCG TABLET 1 TAB PO DAILY HEART (Reported) Diltiazem HCl (Cartia Xt) 120 MG CAP.ER.24H 1 CAP PO DAILY HEART/BP (Reported ) Fenofibrate 150 MG CAPSULE 1 CAP PO DAILY CHOLESTEROL (Reported) Furosemide 20 MG TABLET 1 TAB PO DAILY WATER PILL (Reported) Lisinopril 40 MG TABLET 1 TAB PO BID BP (Reported) Metoprolol Tartrate 100 MG TABLET 1.5 TAB PO BID HEART/BP (Reported) Rivaroxaban (Xarelto) 20 MG TABLET 1 TAB PO DAILY BLOOD THINNER (Reported) with food Zolpidem Tartrate 10 MG TABLET 1 TAB PO QPM SLEEP (Reported) Past History Travel History Traveled to [place] past 21 day No Medical History Neurological: NONE EENT: macular degeneration Cardiovascular: AFIB, CAD, hypertension, hyperlipidemia Respiratory: NONE Gastrointestinal: NONE Hepatic: NONE Renal: renal insufficiency Musculoskeletal: gout Psychiatric: NONE Endocrine: NONE Blood Disorders: NONE Cancer(s): NONE NURSE/Reproductive: NONE Other Medical Hx: restless leg syndrome Surgical History Surgical History: tonsillectomy Family History Relations & Conditions If Any: MOTHER FH: lung cancer FATHER FH: lung cancer Relation not specified for: Bone cancer Psychosocial History Services at Home: None ETOH Use: denies use, none since 2012 Illicit Drug Use: denies illicit drug use, quit cocaine and marijuana in 2006 Exam & Diagnostic Data Vital Signs and I&O Vital Signs Date Time Temp Pulse Resp B/P B/P Pulse O2 O2 Flow FiO2 Mean Ox Delivery Rate 05/22 1752 96.3 83 18 143/72 98 Room Air 05/22 1530 91 146/79 05/22 1514 96.5 72 16 136/75 100 Room Air 05/22 1430 96.0 70 20 120/60 98 Room Air 05/22 1229 97.3 94 18 136/89 99 Room Air Intake & Output 05/22 1600 05/22 0800 05/22 0000 05/21 1600 05/21 0800 05/21 0000 Intake Total Output Total Balance Patient 238 lb Weight Physical Exam: General: WD/WN male in NAD; alert and oriented x 3 HEENT: NC/AT, PERRL, EOMI Neck: no JVD, no carotid bruit Heart: RRR w/o murmur Lungs: clear bilaterally ABdomen: soft, NT, +ve bowel sounds Extremities: no edema Assessment/Plan Assessment/Plan * This patient has known coronary artery disease and does report some exertional chest discomfort although it is atypical. His stress test was read as a fixed inferior defect with moderately decreased EF. No ischemia was identified and his most recent cardiac catheterization did not show flow limiting CAD. He does seem to have more prominent ST-T wave changes on todays ECG. Cardiac enzymes, D-dimer , a dig level ar all normal although he continues to report a moderate chest discomfort. We will add NTG paste 1/2 inch to his drug regimen. We will also pursue a workup for non-cardiac discomfort. Obtain a GI consult and begin Protonix 40mg daily. Continue aspirin and a statin. * Atrial fibrillation.This patient has chronic atrial fibrillation with rapid heart rate. Digoxin has helped his heart rate and will be continued along with Metoprolol and Cardizem. He is not amenable to cardioversion. We will continue Xarelto for stroke prophylaxis. I previously had concerns that he may have a tachycardia induced cardiomyopathy but his EF is normal on a recent echocardiogram. * Hypertension. This patient is typically normotensive. I suspect that prior hypertension has resulted in some renal disease. He is on Lisinopril 40mg BID now. He needs to engage in a low sodium diet. * Hyperlipidemia. This patient has very high triglycerides with unmeasurable LDL. We will begin Lipitor 20mg daily and will recheck his fasting lipids in 6 weeks. He was advised to engage in a low fat and cholesterol diet and to watch his carbohydrate intake. Exercise was also recommended. Consult Acknowledgment - Thank you for your consult request.
[2017-05-22 18:41] VITALS: BP 128/74
--- NOTE | 2017-05-23 09:03 | PN- Housestaff ---
Guerrero BARR,Nam 05/23/17 0902: Subjective Follow-up For: Chest pain SOB Tele-Events Since Last Visit: afib HR 71-97 QRS .08 HI .18 Subjective: No acute events overnight. Still complaining of same chest pain. Still has some SOB. Review of Systems Constitutional: Reports: see HPI. Objective Last 24 Hrs of Vital Signs/I&O Vital Signs Date Time Temp Pulse Resp B/P B/P Pulse O2 O2 Flow FiO2 Mean Ox Delivery Rate 05/23 1441 98.1 70 18 102/72 97 Room Air 05/23 1027 93 128/74 05/23 1026 93 128/74 Intake & Output 05/23 1600 05/23 0800 05/23 0000 Intake Total 860 220 Output Total Balance 860 220 Intake, Oral 860 220 Patient 238 lb Weight Physical Exam General Appearance: Alert, Oriented X3, Cooperative, No Acute Distress Cardiovascular: irregularly irregular Lungs: Clear to Auscultation, Normal Air Movement Abdomen: Normal Bowel Sounds, Soft, No Tenderness Vascular: 2+ radial pulse Current Medications: Current Medications Sig/Rocio Start time Last Medication Dose Route Stop Time Status Admin Acetaminophen 650 MG Q6-PRN PRN 05/22 2045 DCD 05/22 PO 2043 Albuterol Sulfate 2 PUF Q4-6 PRN PRN 05/22 1830 DCD INH Allopurinol 300 MG BID 05/22 2200 DCD 05/23 PO 1026 Aspirin 81 MG DAILY 05/23 1000 DCD 05/23 PO 1027 Atorvastatin Calcium 20 MG 1700 05/23 1700 DCD PO Clopidogrel Bisulfate 75 MG DAILY 05/23 1000 DCD 05/23 PO 1026 Digoxin 0.125 MG 1700 05/23 1700 DCD PO Diltiazem HCl 120 MG DAILY 05/23 1000 DCD 05/23 PO 1027 Fenofibrate 145 MG DAILY 05/23 1000 DCD 05/23 PO 1026 Furosemide 20 MG DAILY 05/23 1000 DCD 05/23 PO 1027 Lisinopril 40 MG BID 05/23 1000 DCD 05/23 PO 1026 Metoprolol Tartrate 150 MG BID 05/22 2200 DCD 05/23 PO 1027 Nitroglycerin 1 GM .STK-MED ONE 05/23 1256 TX TOP 05/23 1257 Nitroglycerin 1 GM .STK-MED ONE 05/23 0002 DC TOP 05/23 0003 Nitroglycerin 0.5 GM Q6 05/22 1930 DCD 05/23 TOP 1312 Pantoprazole Sodium 40 MG DAILY 05/22 1828 DCD 05/23 IV 1027 Patient Medication 1 ED ONE ONE 05/23 1530 DC 05/23 Teaching ED 05/23 1531 1555 Ramelteon 8 MG .STK-MED ONE 05/23 0002 DC PO 05/23 0003 Ramelteon 8 MG ONCE ONE 05/22 2345 DC 05/23 PO 05/22 2346 0004 Rivaroxaban 20 MG DAILY 05/23 1000 DCD 05/23 PO 1026 Zolpidem Tartrate 10 MG QPM 05/22 2200 DCD 05/22 PO 204 Assessment/Plan Assessment: A: 61-year-old male with a past medical history of A. fib, CHF, gout, CAD status post stent, 5x cardioversions + mini maze failure, macular degeneration presenting for chest pain and shortness of breath. P: #Chest pain most likely muscle skeletal, r/o acs Patient sent in by Dr. White for ST-T wave changes on todays ECG Chest pain reproducible upon palpation CXR: No active disease in the chest. Stable mild cardiomegaly. trops <.01 x3 ProBNP 851 -patient discharged with script for barium swallow. instructed to get it with GI. -stop plavix per cards -discharge with f/u to cardiology -discharged with protonix, atorvastain -f/u with GI for EGD for dyspahgia/gerd #SOB -spoke with pulmnology who recommneded outpatient sleep study and pulm f/u after -cont c nebs #EDEN Creatinine 1.6 (baseline 1.3) -Continue to monitor #Chronic medical conditions -Continue digoxin, atorvastatin, apixaban, lisinopril, furosemide, fenofibrate, diltiazem, clopidogrel, aspirin, zolpidem, metoprolol, allopurinol, albuterol #FULL CODE #DVT prophylaxis -apixaban Problem List: 1. Atypical chest pain 2. Shortness of breath Pain Ratin Pain Location: left chest Pain Goal: Pain 4 or less Pain Plan: pain pathway Tomorrow's Labs & Rationales: none Dilip Anaya 05/23/17 1629: Attending MD Review Statement Attending Statement Attending MD Statement: examined this patient, discuss w/resident/PA/BAKER PIE, agreed w/resident/PA/BAKER PIE, reviewed EMR data (avail), discussed with nursing, discussed with case mgmt Attending Assessment/Plan: Pt being dced home in stable condition. Pts plavix will be stopped as his stent was in 2014. He will be dced on baby asa and xarelto. Pt was started on ppi and will f//u with gi clinic as an outpatient and will get barium swallow as an outpatient. d/w pt the care plan.
--- NOTE | 2017-05-23 12:07 | Cons- Gastroenterology ---
General Information and HPI Consulting Request Date of Consult: 05/23/17 Requested By: Jaclyn BARR,Dilip Chacon Reason for Consult: I was notified today of a request for an elective GI consult to assess atypical chest pain in a patient with known ASHD and EKG changes, HD #2. The GI consult was done in the presence of the patient's , Yamilet, as per patient. Source of Information: patient, old records Exam Limitations: poor historian, pt agitated, anxious, & irritated that he had to answer questions History of Present Illness: 61 y/o male, HTN, HLD, chronic A. fib, ASHD with cardiac stent (?type) to obtuse marginal artery 2014, on aspirin, Plavix, & Xarelto, post mini-MAZE procedure 2006 (only stayed in NSR x 6 months-> back in afib; then claimed he failed subsequent electrical cardioversion x 5), mild asthma, macular degeneration, gout, renal insufficiency, restless leg syndrome, admitted to 05/22/17 for CP & SOB. The patient is anxious and irritable. He was annoyed answering questions. He was a poor historian. He changes doctors frequently. Dr. White is his fifth fruit raiser. As per my discussion with Dr. White, the patient reportedly had a stable Persantine thallium test in 2017, followed by a repeat cardiac cath in 2017, that showed "medical disease". Although the patient stated he had a second cardiac stent placed in 2017, Dr. White disputed this. The patient was sent in to the [facility] by Dr. White for ST-T wave changes noted on outpatient EKG in the cardiology office, earlier on 05/22/17. He claimed his chest pain was chronic and ongoing in nature on a daily basis, since his mini maze procedure in 2006, and had become progressively worse. It was primarily in the left chest/mid-sternum, but occasionally radiated to the back. He denied any prior abdominal surgery, abdominal trauma, CW trauma, or zoster. The patient claimed his chest pain was daily, occasionally associated with a "fluttering sensation" associated with his A. fib. The symptoms lasted "all day ". There is occasional associated shortness of breath and lightheadedness, without LOC. His CP symptoms are independent of po intake, movement, or position. In fact, he lifts 45 pound objects at work without change in his symptoms. He denied any chest pain with ambulation, but did note chronic FRANCISCO with stairs. He denied any fevers, chills, jaundice, night sweats, rashes, weight loss, or change in appetite. He was not on NSAIDs. He claimed he had "chronic GERD", requiring Tums and/or Omeprazole, although he never had a baseline EGD. He claims he remotely had a colonoscopy at [facility] in [place], [place] more than 10 years ago, when he turned 50 (unsure as to by whom), & was told of "polyps", but never had another colonoscopy. When this was brought up, he claimed he refuses to have another colonoscopy. He denied any diarrhea, constipation, obstipation, tenesmus, or rectal bleeding. The patient claimed he has sensation of his "throat closing" on a constant basis , but there was no history of globus, transfer dysphagia, CVA, change in voice, thyroid disease, head & neck RT, or head & neck Ca. He noted occasional dysphagia to dry solids, such as meat, but not bread. He tolerated liquids and pills, without difficulty. The food eventually passes. He has never required a food disimpaction. He denied any odynophagia, hematemesis, melena, nausea, vomiting, early satiety, or abdominal pain. He denied any fatty food intolerance. He denied any hemoptysis or pleuritic pain. He did note occasional epistaxis, on antiplatelet agents & Xarelto. He denied any gum bleeding. He denied any history of cigarette smoking. He denied any history of EtOH, but according to the chart, he previously used alcohol until 2012. He denied any IVDA. He currently denied any illicit drug use, quitting cocaine and marijuana in 2006, at the time of his mini MAZE procedure. He denied any family history of GI CA, GI disease, or inherited liver disease. Both of his parents from smoking related malignancies at age 80, possibly lung cancer. The patient had an echocardiogram repeated 05/22/17, results of which are pending, per Dr. White. He has had EKG 3 on 05/22/17, per Dr. White, which were not yet in the computer, but were later located in the patient's chart. The patient claimed his daily chronic chest pain syndrome is no better nor worse than it had been since 2006. He was tolerating a heart healthy diet uneventfully. 05/22/17: Admission labs- WBC 5.8, H/H 15/43.8, MCV 85.9, RDW 14.9, PLT 190, d- dimer < 200, random glucose 131, BUN/Cr 24/1.6, GFR 44, nl lytes, with Ca 9.9, albumin 4.2, globulin 2.5, TBil 0.7, alk phos 80, AST 41, ALT 50, troponin < 0.01 x 3, BNP 851. 05/22/17: XRY-CHEST XRAY, TWO VIEWS- No active disease in the chest. Stable mild cardiomegaly. Mild eventration of the right hemidiaphragm. Retained epicardial pacer wires. Old right-sided rib fractures. Multilevel DJD in thoracic spine. Mild thoracic kyphosis. 05/22/17: EKG #1-afib @ 103, nl axis, nl int, diffuse NSST 05/22/17: EKG #2-afib @ 85, nl axis, nl int, diffuse NSST 05/22/17: EKG #3-afib @ 78, nl axis, nl int, diffuse NSST Allergies/Medications Allergies: Coded Allergies: NO KNOWN ALLERGIES (05/07/13) Home Med List: Albuterol Sulfate (Proair Hfa) 90 MCG HFA.AER.AD 2 PUF INH Q4-6 PRN PRN WHEEZING Allopurinol 300 MG TABLET 1 TAB PO BID GOUT (Reported) Aspirin (Aspirin*) 81 MG TAB.CHEW 1 TAB PO DAILY HEART HEALTH (Reported) Atorvastatin Calcium 20 MG TABLET 1 TAB PO DAILY CHOLESTEROL . Clopidogrel Bisulfate (Clopidogrel) 75 MG TABLET 1 TAB PO DAILY BLOOD THINNER (Reported) Digoxin 125 MCG TABLET 1 TAB PO DAILY HEART (Reported) Diltiazem HCl (Cartia Xt) 120 MG CAP.ER.24H 1 CAP PO DAILY HEART/BP (Reported ) Fenofibrate 150 MG CAPSULE 1 CAP PO DAILY CHOLESTEROL (Reported) Furosemide 20 MG TABLET 1 TAB PO DAILY WATER PILL (Reported) Lisinopril 40 MG TABLET 1 TAB PO BID BP (Reported) Metoprolol Tartrate 100 MG TABLET 1.5 TAB PO BID HEART/BP (Reported) Pantoprazole Sodium (Protonix) 20 MG TABLET. 1 TAB PO DAILY GERD . Rivaroxaban (Xarelto) 20 MG TABLET 1 TAB PO DAILY BLOOD THINNER (Reported) with food Zolpidem Tartrate 10 MG TABLET 1 TAB PO QPM SLEEP (Reported) Current Medications: Current Medications Sig/Rocio Start time Last Medication Dose Route Stop Time Status Admin Acetaminophen 650 MG Q6-PRN PRN 05/22 2045 AC 05/22 PO 204 Albuterol Sulfate 2 PUF Q4-6 PRN PRN 05/22 1830 AC INH Allopurinol 300 MG BID 05/22 2200 AC 05/23 PO 1026 Aspirin 81 MG DAILY 05/23 1000 AC 05/23 PO 1027 Atorvastatin Calcium 20 MG 1700 05/23 1700 AC PO Clopidogrel Bisulfate 75 MG DAILY 05/23 1000 AC 05/23 PO 1026 Digoxin 0.125 MG 1700 05/23 1700 AC PO Diltiazem HCl 120 MG DAILY 05/23 1000 AC 05/23 PO 1027 Fenofibrate 145 MG DAILY 05/23 1000 AC 05/23 PO 1026 Furosemide 20 MG DAILY 05/23 1000 AC 05/23 PO 1027 Lisinopril 40 MG BID 05/23 1000 AC 05/23 PO 1026 Metoprolol Tartrate 150 MG BID 05/22 2200 AC 05/23 PO 1027 Nitroglycerin 1 GM .STK-MED ONE 05/23 0002 DC TOP 05/23 0003 Nitroglycerin 0.5 GM Q6 05/22 1930 AC 05/23 TOP 1312 Nitroglycerin 0.4 MG DAILY 05/22 1832 DC 05/22 TOP 1933 Nitroglycerin 0 .STK-MED ONE 05/22 1513 DC Nitroglycerin 0.4 MG ONCE ONE 05/22 1500 DC 05/22 SL 05/22 1501 1514 Pantoprazole Sodium 40 MG DAILY 05/22 1828 AC 05/23 IV 1027 Ramelteon 8 MG .STK-MED ONE 05/23 0002 DC PO 05/23 0003 Ramelteon 8 MG ONCE ONE 05/22 2345 DC 05/23 PO 05/22 2346 0004 Rivaroxaban 20 MG DAILY 05/23 1000 AC 05/23 PO 1026 Zolpidem Tartrate 10 MG QPM 05/22 2200 AC 05/22 PO 204 Past History Travel History Traveled to [place] past 21 day No Medical History Blood Transfusion Hx: No Neurological: NONE EENT: macular degeneration Cardiovascular: AFIB, CAD, hypertension, hyperlipidemia Respiratory: asthma (mild) Gastrointestinal: GERD (w/o baseline EGD), umbilical hernia, "hx colon polyps" approx [address] [facility] [place], w/o f/u (pt refused) Hepatic: NONE Renal: renal insufficiency Musculoskeletal: gout Psychiatric: anxiety Endocrine: NONE Blood Disorders: NONE Cancer(s): NONE SHOULDER JOINER/Reproductive: NONE Other Medical Hx: restless leg syndrome Surgical History Surgical History: tonsillectomy Family History Relations & Conditions If Any: MOTHER, , Age 80. FH: lung cancer FATHER, Age 80. FH: lung cancer Relation not specified for: Bone cancer Psychosocial History Where Do You Live? Home Who Do You Live With? spouse (Yamilet) Services at Home: None Primary Language: Malian Smoking Status: Never Smoked ETOH Use: denies use (+EtOH prior to 2012) Illicit Drug Use: denies illicit drug use (ex-cocaine/pot 2006; no IVDA) Living Will? no Power of Community Service Manager/HCP? no Other Social History: to Yamilet. No children. Non-smoker. Ex-EtOH (? amt), stopped 2012. Ex- cannabis & cocaine, D/C 2006 ([id number]). Denied IVDA. [place]. Functional Ability ADLs Independent: dressing, eating, toileting, bathing. Ambulation: independent IADLs Independent: shopping, housework, finances, food prep, telephone, transportation , medication admin. Employment History Employment: Employed Profession/Employer: [employer] ECHO Results (as available) Date of last Echo 05/07/13 EF% 50 Review of Systems Review of Systems: Full 14 point review of systems otherwise noncontributory, and as above. Review of Systems Constitutional: Denies: chills, diaphoresis, fever, malaise, weakness, unexplained weight loss. EENTM: Reports: visual changes (mac degen). Denies: blurred vision, double vision, eye pain, eye drainage, eye tearing, icterus, ear discharge, ear pain, ear redness, hearing changes, nasal congestion, epistaxis, nasal pain, throat pain, throat swelling, mouth pain, tooth pain. Cardiovascular: Reports: chest pain (daily & constant since 2006). Denies: edema, orthopena, palpitations, peripheral edema, syncope. Respiratory: Reports: short of breath (FRANCISCO (chronic)). Denies: cough, hemoptysis, orthopnea, sputum production, stridor, wheezing. GI: Denies: no symptoms (GERD & int dysphagia to meat), abdominal pain, bloating, constipation, diarrhea, distention, bowel incontinence, melena, nausea, bloody stool, changes in stool, vomiting, steatorrhea. Genitourinary: Denies: discharge, dysuria, frequency, hematuria, hesitation, nocturia, pain, urgency. Musculoskeletal: Denies: back pain, gout, joint pain, joint swelling, muscle pain, muscle stiffness, neck pain. Skin: Denies: cysts, change in skin color, change in hair/nails, dryness, erythema, jaundice, lesions, lymphangitis, lumps, moles, rash. Neurological/Psychological: Reports: anxiety (mild). Denies: ataxia, cognitive dysfunction, confusion, depressed, dementia, emotional problems, headache, numbness, paresthesia, pre- existing deficit, petit mal seizures, tingling, tremors, tonic-clonic seizures, unable to move lower ext, unable to move upper ext, weakness. Hematologic/Endocrine: Reports: bleeding (occ epistaxis). Denies: bruising, polyuria, polydipsia. Immunologic/Allergic: Denies: splenectomy, HIV/AIDS, lymphadenopathy. All Other Systems: Reviewed and Negative Exam & Diagnostic Data Vital Signs and I&O Vital Signs Date Time Temp Pulse Resp B/P B/P Pulse O2 O2 Flow FiO2 Mean Ox Delivery Rate 05/23 1027 93 128/74 05/23 1026 93 128/74 05/22 2041 93 128/74 05/22 1841 97.5 93 22 128/74 97 05/22 1752 96.3 83 18 143/72 98 Room Air 05/22 1530 91 146/79 05/22 1514 96.5 72 16 136/75 100 Room Air 05/22 1430 96.0 70 20 120/60 98 Room Air Intake & Output 05/23 1600 05/23 0400 05/22 1600 05/22 0400 05/21 1600 05/21 0400 Intake Total 220 Output Total Balance 220 Intake, Oral 220 Patient 238 lb 238 lb Weight Physical Exam: Well-developed, well-nourished, slightly obese male, slightly anxious & agitated , in no apparent distress. Sclera anicteric. Conjunctiva pink. Oropharynx clear. No oral thrush. No aphthous ulcers. Fair dentition. No stridor. There is no adenopathy, thyromegaly, or JVD. No peripheral stigmata of inflammatory bowel disease or chronic liver disease on exam. No gynecomastia. No spiders on the anterior chest wall. No CVA tenderness. No spine tenderness. Mild thoracic kyphosis. Lungs: clear to A&P. No wheezing, rales, or rhonchi. No zoster. No chest wall or rib tenderness. Heart exam: irregularly irregular rate rhythm, S1 and S2, with I/ systolic murmur. No rubs or gallops. Abdominal exam: normal bowel sounds, soft belly, slightly obese, nontender, without guarding or rebound. Reducible umbilical hernia, otherwise no mass. No organomegaly. No fluid shift. No pulsatile mass. No epigastric bruit. Digital rectal exam: refused by patient. Extremities: without C, C, or E. Mild DJD. No palpable cords. No palmar erythema. No Dupuytren's contractures. Distal pulses 2+ bilaterally. DTRs 2+ bilaterally. Right handed. Motor 5/5 B/ L. Alert and oriented x 3. No tremor. No asterixis. Results Pertinent Lab Results: Laboratory Tests 05/22 05/22 05/22 2200 1748 1238 Chemistry Sodium (137 - 145 mmol/L) 142 Potassium (3.5 - 5.1 mmol/L) 4.4 Chloride (98 - 107 mmol/L) 101 Carbon Dioxide (22 - 30 mmol/L) 28 Anion Gap (5 - 16) 13 BUN (9 - 20 mg/dL) 24 H Creatinine (0.7 - 1.2 mg/dL) 1.6 H Estimated GFR (>60 ml/min) 44 L BUN/Creatinine Ratio (7 - 25 %) 15.0 Glucose (65 - 99 mg/dL) 131 H Calcium (8.4 - 10.2 mg/dL) 9.9 Magnesium (1.6 - 2.3 mg/dL) 1.9 Total Bilirubin (0.2 - 1.3 mg/dL) 0.7 AST (17 - 59 U/L) 41 ALT (21 - 72 U/L) 50 Alkaline Phosphatase (< 127 U/L) 80 Troponin I (<0.11 ng/ml) < 0.01 < 0.01 < 0.01 [id number] Pept (<125 pg/mL) 851 H Total Protein (6.3 - 8.2 g/dL) 6.7 Albumin (3.5 - 5.0 g/dL) 4.2 Globulin (1.9 - 4.2 gm/dL) 2.5 Albumin/Globulin Ratio (1.1 - 2.2 %) 1.7 Coagulation D-Dimer High Sensitivty (0 - 243 ng/ml) < 200 Hematology CBC w Diff NO MAN DIFF REQ WBC (4.8 - 10.8 /CUMM) 5.8 RBC (4.70 - 6.10 /CUMM) 5.10 Hgb (14.0 - 18.0 G/DL) 15.0 Hct (42 - 52 %) 43.8 MCV (80.0 - 94.0 FL) 85.9 MCH (27.0 - 31.0 PG) 29.4 MCHC (33.0 - 37.0 G/DL) 34.2 RDW (11.5 - 14.5 %) 14.9 H Plt Count (130 - 400 /CUMM) 190 MPV (7.4 - 10.4 FL) 9.5 Gran % (42.2 - 75.2 %) 59.8 Lymphocytes % (20.5 - 51.1 %) 31.4 Monocytes % (1.7 - 9.3 %) 7.3 Eosinophils % (0 - 5 %) 1.2 Basophils % (0.0 - 2.0 %) 0.3 Absolute Granulocytes (1.4 - 6.5 /CUMM) 3.4 Absolute Lymphocytes (1.2 - 3.4 /CUMM) 1.8 Absolute Monocytes (0.10 - 0.60 /CUMM) 0.4 Absolute Eosinophils (0.0 - 0.7 /CUMM) 0.1 Absolute Basophils (0.0 - 0.2 /CUMM) 0 Toxicology Digoxin (0.8 - 2.0 ng/mL) 0.7 L Imaging/Other Studies: 05/22/17: XRY-CHEST XRAY, TWO VIEWS- No active disease in the chest. Stable mild cardiomegaly. Mild eventration of the right hemidiaphragm. Retained epicardial pacer wires. Old right-sided rib fractures. Multilevel DJD in thoracic spine. Mild thoracic kyphosis. 05/22/17: EKG #1-afib @ 103, nl axis, nl int, diffuse NSST 05/22/17: EKG #2-afib @ 85, nl axis, nl int, diffuse NSST 05/22/17: EKG #3-afib @ 78, nl axis, nl int, diffuse NSST Assessment/Plan Assessment/Recommendations: 61 y/o male, HTN, HLD, chronic A. fib, ASHD with cardiac stent (?type) to obtuse marginal artery 2014, on aspirin, Plavix, & Xarelto, post mini-MAZE procedure 2006 (only stayed in NSR x 6 months-> back in afib; then claimed he failed subsequent electrical cardioversion x 5), mild asthma, macular degeneration, gout, renal insufficiency, restless leg syndrome, admitted to 05/22/17 for CP & SOB. The patient is anxious and irritable. He was annoyed answering questions. He was a poor historian. He changes doctors frequently. Dr. White is his fifth fruit raiser. As per my discussion with Dr. White, the patient reportedly had a stable Persantine thallium test in 2017, followed by a repeat cardiac cath in 2017, that showed "medical disease". Although the patient stated he had a second cardiac stent placed in 2017, Dr. White disputed this. The patient was sent in to the [facility] by Dr. White for ST-T wave changes noted on outpatient EKG in the cardiology office, earlier on 05/22/17. He claimed his chest pain was chronic and ongoing in nature on a daily basis, since his mini maze procedure in 2006, and had become progressively worse. It was primarily in the left chest/mid-sternum, but occasionally radiated to the back. He denied any prior abdominal surgery, abdominal trauma, CW trauma, or zoster. The patient claimed his chest pain was daily, occasionally associated with a "fluttering sensation" associated with his A. fib. The symptoms lasted "all day ". There is occasional associated shortness of breath and lightheadedness, without LOC. His CP symptoms are independent of po intake, movement, or position. In fact, he lifts 45 pound objects at work without change in his symptoms. He denied any chest pain with ambulation, but did note chronic FRANCISCO with stairs. He denied any fevers, chills, jaundice, night sweats, rashes, weight loss, or change in appetite. He was not on NSAIDs. He claimed he had "chronic GERD", requiring Tums and/or Omeprazole, although he never had a baseline EGD. He claims he remotely had a colonoscopy at [facility] in [place], [place] more than 10 years ago, when he turned 50 (unsure as to by whom), & was told of "polyps", but never had another colonoscopy. When this was brought up, he claimed he refuses to have another colonoscopy. He denied any diarrhea, constipation, obstipation, tenesmus, or rectal bleeding. The patient claimed he has sensation of his "throat closing" on a constant basis , but there was no history of globus, transfer dysphagia, CVA, change in voice, thyroid disease, head & neck RT, or head & neck Ca. He noted occasional dysphagia to dry solids, such as meat, but not bread. He tolerated liquids and pills, without difficulty. The food eventually passes. He has never required a food disimpaction. He denied any odynophagia, hematemesis, melena, nausea, vomiting, early satiety, or abdominal pain. He denied any fatty food intolerance. He denied any hemoptysis or pleuritic pain. He did note occasional epistaxis, on antiplatelet agents & Xarelto. He denied any gum bleeding. He denied any history of cigarette smoking. He denied any history of EtOH, but according to the chart, he previously used alcohol until 2012. He denied any IVDA. He currently denied any illicit drug use, quitting cocaine and marijuana in 2006, at the time of his mini MAZE procedure. He denied any family history of GI CA, GI disease, or inherited liver disease. Both of his parents from smoking related malignancies at age 80, possibly lung cancer. The patient had an echocardiogram repeated 05/22/17, results of which are pending, per Dr. White. He has had EKG 3 on 05/22/17, per Dr. White, which were not yet in the computer, but were later located in the patient's chart. The patient claimed his daily chronic chest pain syndrome is no better nor worse than it had been since 2006. He was tolerating a heart healthy diet uneventfully. 05/22/17: Admission labs- WBC 5.8, H/H 15/43.8, MCV 85.9, RDW 14.9, PLT 190, d- dimer < 200, random glucose 131, BUN/Cr 24/1.6, GFR 44, nl lytes, with Ca 9.9, albumin 4.2, globulin 2.5, TBil 0.7, alk phos 80, AST 41, ALT 50, troponin < 0.01 x 3, BNP 851. 05/22/17: XRY-CHEST XRAY, TWO VIEWS- No active disease in the chest. Stable mild cardiomegaly. Mild eventration of the right hemidiaphragm. Retained epicardial pacer wires. Old right-sided rib fractures. Multilevel DJD in thoracic spine. Mild thoracic kyphosis. 05/22/17: EKG #1-afib @ 103, nl axis, nl int, diffuse NSST 05/22/17: EKG #2-afib @ 85, nl axis, nl int, diffuse NSST 05/22/17: EKG #3-afib @ 78, nl axis, nl int, diffuse NSST *As of 05/23/17, the patient was hemodynamically stable and afebrile, with O2 sat RA 97%. He remained in chronic A. fib with a stable ventricular response. He had a benign abdominal exam. His chest pain syndrome was chronic and on a daily basis, "23/09" since 2006. Troponin 3 were negative. 05/22/17: Repeat echocardiogram per Dr. White is pending. The patient had a cardiac stent placed in 2014, type unknown. He reportedly had a stable cardiac cath in 2017, which revealed medical disease, as per my discussion with Dr. White. Nevertheless, there is underlying ASHD. The patient appeared anxious. Although there was no chest wall tenderness, there may be a musculoskeletal component, although he claimed he lifted heavy objects at work without difficulty. The intermittent dysphagia to dry solids, such as meats, was noted. He also claimed he had GERD. Rule out Schatzki ring. Rule out eosinophilic esophagitis. Rule out esophageal dysmotility. Doubt esophageal lesion or stricture, base on the intermittent nature of the dysphagia & the lack of constitutional symptoms. Having stated that, the patient was on aspirin, Plavix, and Xarelto, which would currently prohibit any semi-elective GI procedures, which would require biopsies. He refused a digital rectal exam, but there was no overt GI bleeding, melena, or hematemesis. *Additionally, he allegedly had a past history of "colon polyps" removed at [facility] in [place], [place], in 2005, but he refuses a follow-up colonoscopy. He was eating uneventfully as an inpatient, tolerating a heart healthy diet. *SUGGEST- *Cardiac workup to be completed per Dr. White, including 05/22/17: echocardiogram. *Will defer to cardiology regarding CTA chest (last done ), but patient now has CKD, regarding IV contrast. *Would increase PPI to BID dosing, in view of atypical symptoms. *As the patient is on Plavix, would advise Protonix 40 mg po BID, 1/2 hour before breakfast & supper (as opposed to Omeprazole).*Advise outpatient barium swallow, to use as a road map. *Once cleared by cardiology, the patient will need to hold his Plavix & Xarelto preoperatively, while continuing his ASA intraoperatively. *Depending on the barium swallow results, the patient will need an EGD (*possibly with fluoroscopy , if esophageal dilitation is needed), & follow-up colonoscopy (as he allows), regarding the "colon polyps" removed at [facility] in [place], [place] , in 2005, at the time of his baseline & only colonoscopy. The risks & benefits of EGD/colonoscopy were discussed with the patient & his , Yamilet. They were given my office number. *If the EGD is unrevealing and the atypical CP persists, would proceed with esophageal manometry & 24 hour impedance testing. *Further inpatient GI follow-up as needed. The above was discussed with Dr. White & the medical house staff. Problem List: 1. Atypical chest pain 2. GERD (gastroesophageal reflux disease) 3. Dysphagia 4. Umbilical hernia 5. History of colon polyps Copies To: Jaclyn BARR,Dilip Chacon; Johann BARR,Blake White MD PHD,Dagoberto S.; Trevon Flores DO Consult Acknowledgment - Thank you for your consult request.
--- NOTE | 2017-05-23 13:41 | PN- Cardiology ---
Subjective Subjective: * Patient still reports a mild discomfort that is atypical for cardiac discomfort. He ruled out for an IN. * atrial fibrillation with controlled heart rate. Objective Vital Signs and I&Os Vital Signs Date Time Temp Pulse Resp B/P B/P Pulse O2 O2 Flow FiO2 Mean Ox Delivery Rate 05/23 1027 93 128/74 05/23 1026 93 128/74 05/22 2041 93 128/74 05/22 1841 97.5 93 22 128/74 97 05/22 1752 96.3 83 18 143/72 98 Room Air 05/22 1530 91 146/79 05/22 1514 96.5 72 16 136/75 100 Room Air 05/22 1430 96.0 70 20 120/60 98 Room Air Intake & Output 05/23 1600 05/23 0800 05/23 0000 05/22 1600 05/22 0800 05/22 0000 Intake Total 220 Output Total Balance 220 Intake, Oral 220 Patient 238 lb 238 lb Weight Physical Exam: General: WD/WN male in NAD; alert and oriented x 3 HEENT: NC/AT, PERRL, EOMI Neck: no JVD, no carotid bruit Heart: RRR w/o murmur Lungs: clear bilaterally ABdomen: soft, NT, +ve bowel sounds Extremities: no edema Assessment/Plan Assessment/Plan * This patient has discomfort that is very atypical for cardiac pain. His cardiac enzymes are in the normal range. He does have atrial fibrillation with controlled heart rate. He can be dischargedon aspirin 81mg daily and Xarelto for stroke prophylaxis. He does not need NTG or Plavix. The patient should have an outpatient barium swallow and follow up with GI. Follow up in my office in a week. Continue telemetry? No
--- NOTE | 2017-05-23 14:09 | Patient Discharge Instructions ---
Discharge Instructions General Discharge Information Special Instructions: Please follow up with your pcp in 1 week. Please follow up with your glove maker in 1 week. Please follow up with your new GI specialist Dr. Turner in 1 week for a barium swallow and EGD. Please make an appointment with [facility] [place] for a sleep study. [phone] Please take your medications as perscribed. Acute Coronary Syndrome Inclusion Criteria At DC or during hospital stay patient has or had the following: ACS DIAGNOSIS No Discharge Core Measures Meds if any: Prescribed or Continued at Discharge Meds if any: NOT Prescribed or Continued at Discharge Congestive Heart Failure Inclusion Criteria At DC or during hospital stay patient has or had the following: CHF DIAGNOSIS No Discharge Core Measures Meds if any: Prescribed or Continued at Discharge Meds if any: NOT Prescribed or Continued at Discharge Cerebrovascular accident Inclusion Criteria At DC or during hospital stay patient has or had the following: CVA/TIA Diagnosis No Discharge Core Measures Meds if any: Prescribed or Continued at Discharge Meds if any: NOT Prescribed or Continued at Discharge Venous thromboembolism Inclusion Criteria VTE Diagnosis No VTE Type NONE VTE Confirmed by (Test) NONE Discharge Core Measures - Per Current guidelines, there needs to be overlap - treatment for the first 5 days of Warfarin therapy. - If discharged on Warfarin prior to 5 days of - overlap therapy, the patient will need to be - assessed for post discharge needs including - *Post discharge parental anticoagulation - *Warfarin and/or parental anticoagulation education - *Follow up date to check INR post discharge At least 5 days overlap therapy as Inpatient No Meds if any: Prescribed or Continued at Discharge Note: Overlap Therapy is Warfarin and Anticoagulant Meds if any: NOT Prescribed or Continued at Discharge
[2017-05-23] MEDS ORDERED: ATORVASTATIN CA20 M1 PO ×2 (14:13→14:15)
[2017-05-23] MEDS ORDERED: PROTONIX20 M1 PO ×2 (14:14→14:15)
[2017-05-23 14:41] VITALS: BP 102/72
--- NOTE | 2017-05-24 08:28 | ECHOCARDIOGRAM REPORT ---
CINDY GONSALES Age: 61 : 1955 Gender: M Exam Date: 05/23/2017 08:56 Exam Location: [address] Ht (in): 72 Wt (lb): 238 BSA: 2.37 BP: 128 / 74 Ordering Physician: Nam Masters MD Referring Physician: Nam Masters MD Technologist: Portillo Alanis [facility] Room Number: 189-1 Indications: Chest Pain Rhythm: Atrial fibrillation Technical Quality: good FINDINGS Left Ventricle Normal left ventricular size, wall thickness and systolic function with no obvious regional wall motion abnormalities. The ejection fraction is visually estimated at 60%. Right Ventricle The right ventricle is normal in size and function. Right Atrium The right atrium is moderately enlarged. Left Atrium The left atrium is severely enlarged. The interatrial septum is intact. Mitral Valve The mitral valve is normal in structure and function. There is trace mitral regurgitation. Aortic Valve Structurally normal aortic valve without significant sclerosis or stenosis. There is no aortic regurgitation. Tricuspid Valve The tricuspid valve is normal in structure and function. There is trace tricuspid regurgitation. Pulmonary artery systolic pressure is normal. Pulmonic Valve Structurally normal pulmonic valve. There is no pulmonic regurgitation. Pericardium Normal pericardium without effusion. No pleural effusion. Great Vessels Normal aortic root dimension. The aortic arch and great vessels are well seen and are normal. CONCLUSIONS 1. Normal EF of 60%. 2. Moderate right atrial and severe left atrial enlargement. 3. Trace mitral regurgitation. 4. Trace tricuspid regurgitation. Dagoberto White M.D. (Electronically Signed) Final Date: 24 May 2017 08:27 MEASUREMENTS (Male / Female) Normal Values 2D ECHO LV Diastolic Diameter PLAX 5.0 cm 4.2 - 5.9 / 3.9 - 5.3 cm LV Systolic Diameter PLAX 3.3 cm 2.1 - 4.0 cm LV Fractional Shortening PLAX 34.0 % 25 - 46 % LV Ejection Fraction 2D Teich 62.7 % IVS Diastolic Thickness 1.1 cm LVPW Diastolic Thickness 1.1 cm LV Relative Wall Thickness 0.4 RV Internal Dim ED PLAX 4.0 cm 1.9 - 3.8 cm LVOT Diameter 2.1 cm Aortic Root Diameter 3.3 cm LA Systolic Diameter LX 5.2 cm 3.0 - 4.0 / 2.7 - 3.8 cm LA Volume 104.0 cm 18 - 58 / 22 - 52 cm Ascending Aorta Diameter 3.5 cm DOPPLER AV Peak Velocity 106.0 cm/s AV Peak Gradient 4.5 mmHg AV Mean Velocity 72.4 cm/s AV Mean Gradient 2.0 mmHg AV Velocity Time Integral 17.2 cm LVOT Peak Velocity 69.9 cm/s LVOT Peak Gradient 2.0 mmHg LVOT Mean Velocity 43.6 cm/s LVOT Mean Gradient 1.0 mmHg LVOT Velocity Time Integral 15.0 cm LVOT Stroke Volume 52.0 cm AV Area Cont Eq vti 3.0 cm AV Area Cont Eq pk 2.3 cm TR Peak Velocity 354.0 cm/s TR Peak Gradient 50.1 mmHg Right Atrial Pressure 5.0 mmHg Pulmonary Artery Systolic Pressu 55.1 mmHg Right Ventricular Systolic Press 55.1 mmHg PV Peak Velocity 119.0 cm/s PV Peak Gradient 5.7 mmHg PV Mean Velocity 79.9 cm/s PV Mean Gradient 3.0 mmHg PV Velocity Time Integral 21.8 cm
== END 2017-05-23 16:24 ==
LOC: ERH 12:18 → 1NO 16:55 → ERHI 16:55 → ENRESERV 17:57 → ENTRNSPT 18:12 → 1NO 18:23 → EDTRNSPT 18:26 → 1NO 18:37 → CMPTRNSPT 18:44 → 1NO 05-23 07:58 → ENTRNSPT 05-23 15:38 → CMPTRNSPT 05-23 16:07 → 1NO 05-23 16:24
PROVIDERS: Emergency Medicine
DX: R07.89 Other chest pain (principal); R06.02 Shortness of breath; I48.2 Chronic atrial fibrillation; Z79.01 Long term (current) use of anticoagulants; I13.0 Hypertensive heart and chronic kidney disease with heart failure and stage 1 through stage 4 chronic kidney disease, or unspecified chronic kidney disease; I50.42 Chronic combined systolic (congestive) and diastolic (congestive) heart failure; N18.9 Chronic kidney disease, unspecified; M10.9 Gout, unspecified; I25.10 Atherosclerotic heart disease of native coronary artery without angina pectoris; Z95.5 Presence of coronary angioplasty implant and graft; H35.30 Unspecified macular degeneration; Z79.82 Long term (current) use of aspirin; E78.5 Hyperlipidemia, unspecified; K21.9 Gastro-esophageal reflux disease without esophagitis; G25.81 Restless legs syndrome; R42 Dizziness and giddiness
CPT/HCPCS: 6020; 36592; 71046; 93005; 93010; 93306; 96374; 96376; G0378; J3490